=== PATIENT | male | born 1995 | race Hispanic/Latino ===

== ENCOUNTER 2022-08-16 20:18 | Emergency (ER) | payer BC ==
[~2022-08-16] VITALS: Ht 160 cm; Wt 72.6 kg
[2022-08-16] MEDS ORDERED: FAMOTIDINE 20 MG/2 ML VIAL IV ONE (22:12)
[2022-08-16] MEDS ORDERED: DICYCLOMINE HCL 10 MG CAP ONE (22:12)
[2022-08-16] MEDS ORDERED: SODIUM CHLORIDE 0.9% 1000ML 1,000 ML ONE (22:12)
[2022-08-16] MEDS ORDERED: ONDANSETRON HCL INJ 2MG/ML 2ML 2 MG/ML VIAL ONE (22:12)
[2022-08-16] MEDS ORDERED: ONDANSETRON ODT4 MG PO (22:54)
[2022-08-16] MEDS ORDERED: LEVSIN-SL0.125 MG SL (22:55)
== END 2022-08-16 23:35 | disposition home or self-care (01) ==
LOC: FSED 20:26
DX: R11.2 Nausea with vomiting, unspecified (principal); K52.9 Noninfective gastroenteritis and colitis, unspecified; B34.9 Viral infection, unspecified; R10.30 Lower abdominal pain, unspecified
CPT/HCPCS: 80053; 81003; 85025; 99283; J2405; J7030